=== PATIENT | male | born 1990 | race Caucasian/White ===

== ENCOUNTER 2016-11-18 19:28 | Emergency (ER) | payer OTHER ==
[2016-11-18 20:56] LABS: HEMOGLOBIN 16.9 gm/dl (14.0-17.5); RED BLOOD COUNT 5.13 M/UL (4.20-5.50); WHITE BLOOD COUNT 15.3 K/UL (4.5-11.0)
[2016-11-18 21:13] LABS: BUN/CREATININE RATIO 7 (0-10)
== END 2016-11-19 00:35 | disposition home or self-care (01) ==
LOC: ER1 19:28
PROVIDERS: Student in an Organized Health Care Education/Training Program
DX: S71.112A Laceration without foreign body, left thigh, initial encounter (principal); E87.6 Hypokalemia; V86.59XA Driver of other special all-terrain or other off-road motor vehicle injured in nontraffic accident, initial encounter; Y93.89 Activity, other specified; Y99.8 Other external cause status; Z23 Encounter for immunization
CPT/HCPCS: 12032; 36415; 71010; 72170; 73564; 80053; 80307; 81001; 83690; 85025; 85610; 85730; 90471; 90715; 96361; 96365; 96372; 99283; G0480; J0690; J2270

== ENCOUNTER 2016-11-22 13:29 | Inpatient (IN) | payer OTHER ==
[~2016-11-22] VITALS: Ht 190.5 cm; Wt 118.4 kg
[2016-11-22 16:10] LABS: HEMOGLOBIN 13.6 gm/dl (14.0-17.5); RED BLOOD COUNT 4.28 M/UL (4.20-5.50); WHITE BLOOD COUNT 16.7 K/UL (4.5-11.0)
[2016-11-22 16:30] LABS: BUN/CREATININE RATIO 10 (0-10)
[2016-11-23 06:54] LABS: HEMOGLOBIN 12.1 gm/dl (14.0-17.5)
[2016-11-23 06:55] LABS: RED BLOOD COUNT 3.82 M/UL (4.20-5.50); WHITE BLOOD COUNT 11.5 K/UL (4.5-11.0)
[2016-11-23 07:11] LABS: BUN/CREATININE RATIO 11 (0-10)
[2016-11-24 05:12] LABS: HEMOGLOBIN 12.9 gm/dl (14.0-17.5); RED BLOOD COUNT 4.05 M/UL (4.20-5.50); WHITE BLOOD COUNT 9.9 K/UL (4.5-11.0)
[2016-11-24 05:38] LABS: BUN/CREATININE RATIO 10 (0-10)
[2016-11-25 05:08] LABS: HEMOGLOBIN 13.3 gm/dl (14.0-17.5); RED BLOOD COUNT 4.19 M/UL (4.20-5.50); WHITE BLOOD COUNT 11.2 K/UL (4.5-11.0)
[2016-11-25 05:29] LABS: BUN/CREATININE RATIO 15 (0-10)
[2016-11-26 04:38] LABS: BUN/CREATININE RATIO 16 (0-10)
[2016-11-27 06:34] LABS: BUN/CREATININE RATIO 17 (0-10)
[2016-11-27] MEDS ORDERED: NORCO 7.5-3251 EACH PO (15:55)
[2016-11-27] MEDS ORDERED: CIPRO500 MG PO (15:56)
== END 2016-11-27 17:55 | disposition home or self-care (01) | DRG 603 ==
LOC: ER1 13:29 → ZEROF 19:42 → MED SURG 4 19:42
PROVIDERS: Emergency Medicine; ADMIT Surgery
DX: L03.116 Cellulitis of left lower limb (principal); S71.122A Laceration with foreign body, left thigh, initial encounter; B96.89 Other specified bacterial agents as the cause of diseases classified elsewhere; V86.99XA Unspecified occupant of other special all-terrain or other off-road motor vehicle injured in nontraffic accident, initial encounter; Y92.9 Unspecified place or not applicable; F17.210 Nicotine dependence, cigarettes, uncomplicated; D72.829 Elevated white blood cell count, unspecified; E87.6 Hypokalemia; D64.9 Anemia, unspecified; Z82.49 Family history of ischemic heart disease and other diseases of the circulatory system
CPT/HCPCS: 36415; 73552; 73700; 80048; 80053; 80202; 82550; 83605; 85025; 85027; 86140; 87040; 87070; 87077; 87186; 87205; 96361; 96365; 96366; 96367; 96375; 97116; 99284; G0378; J1335; J1650; J2270; J2405; J3370; J7030; J7040; J7050; J7070